=== PATIENT | male | born 1960 | race Caucasian/White ===

== ENCOUNTER 2017-01-20 07:47 | Day surgery (SDC) | payer BC ==
--- NOTE | 2017-01-20 10:47 | Operative Note ---
Surgeon/Diagnoses Surgeon/[employer](s) Date of procedure: 01/20/17 Surgeon: MD Ruthie Peter Diagnoses Pre-op diagnosis: History of colon polyps Post-op diagnosis Colon polyps Hemorrhoidal cushions Hemorrhoidal tags Procedure Procedure Procedure: Colonoscopy with biopsy (polypectomy by means other than snare) Indications: RICCARDO LOW is a 56 year-old Male with a history of colon polyps. Findings: Bowel preparation moderate Moderate tortuosity Significant spasticity Hemorrhoidal cushions Hemorrhoidal tags Cecal polyp Transverse colon polyp Procedure Description: After informed consent was obtained, the patient was taken to the endoscopy suite. IV sedation ensued after he was transferred to the LEFT lateral decubitus position. Digital rectal exam revealed hemorrhoidal cushions and hemorrhoidal tags. The colonoscope was placed in position. The entire colon was evaluated. Bowel preparation was moderate with irrigation and suctioning used to improve visualization. Moderate tortuosity and fairly significant spasticity were encountered. A cecal polyp was excised with cold biopsy forceps. A transverse colon polyp was excised with cold biopsy forceps. No additional lesions were seen. Hemorrhoidal cushions confirmed. No thrombosis or bleeding noted. The colonoscope was carefully removed and the patient was transferred to recovery. EBL (ml): 1 Anesthesia: IV sedation with 9 mg of Versed and 200 g of fentanyl Complications: No immediate Specimens: Cecal polyp Transverse colon polyp Disposition Disposition: Stable to recovery from where he will be discharged home. He will follow-up in one week. Repeat colonoscopy is pending pathology but will likely be between 2-3 years secondary to moderate prep, tortuosity, spasticity, and history of polyps. at [id number]
[2017-01-20 14:32] VITALS: BP 103/60
== END 2017-01-20 11:40 | disposition home or self-care (01) ==
LOC: SDC 07:47
PROVIDERS: Surgery
PROC: 0DBL8ZX Excision of Transverse Colon, Via Natural or Artificial Opening Endoscopic, Diagnostic (ICD-10-PCS; 2017-01-20)
PROC: 0DBH8ZX Excision of Cecum, Via Natural or Artificial Opening Endoscopic, Diagnostic (ICD-10-PCS; principal; 2017-01-20 08:30)
DX: Z09 Encounter for follow-up examination after completed treatment for conditions other than malignant neoplasm (principal); Z86.010 Personal history of colon polyps; K64.9 Unspecified hemorrhoids; K63.5 Polyp of colon